=== PATIENT | male | born 1970 | race Two or more races ===

== ENCOUNTER 2016-09-17 12:28 | Emergency (ER) | payer SELFPAY ==
[2016-09-17 12:33] VITALS: BP 145/80; BMI 26.7
[2016-09-17] MEDS ORDERED: ADACEL TDaP IM ONE ×2 (13:27→13:32)
[2016-09-17] MEDS ORDERED: KEFLEX CAP 500 MG PO ONE ×2 (13:27→13:32)
[2016-09-17] MEDS ORDERED: TORADOL 60 MG VIAL IM ONE (13:27)
[2016-09-17] MEDS ORDERED: TORADOL 60 MG VIAL ONE (13:31)
--- NOTE | 2016-09-17 13:31 | DR.GENAD ---
HPI - PCP Primary Care Physician: NFD - Complaint/Symptoms Chief Complaint Doctors Comments: Patient states he fell down the stairs and cut the back of his heel yesterday but did not come to the emergency room because he was drinking. Unsure if he cut it two days ago or one day ago. States he is unsure when he got his last tetanus. He denies head trauma or LOC. He denies neck or back pain. States the pain in his heel is 5 of 10. He has been hopping but states his foot does not hurt. He denies chest pain or SOB. Chief Complaint:: FELL DOWN A SET OF STEPS YESTERDAY AND CUT THE BACK OF HIS LEFT HEEL ON SOMETHING NICHOLAS - Nurses notes reviewed Nurses Notes Review: Yes - Source History Provided: Family Member - Mode of Arrival Mode of Arrival: Ambulatory - Timing Onset of Chief Complaint: 09/16/16 Came on: Gradually - Duration Duration: Constant How lon Duration: Days - Location Location: right heel - Severity Severity: Moderate - Modifying Factors Worsens:: walking and movement Improves:: nothing PMH - PMH Past Medical History: No Past Surgical History: No - Family History History of Family Medical Conditions: No - Social History Does patient currently use any type of tobacco product: No Have you used tobacco products in the last 12 months: No Type of Tobacco Use: None Does any household member use tobacco: No Alcohol Use: DAILY Do you use any recreational Drugs:: No Lives With: Family Lives Where: Home - infectious screening In the last 2 months have you had wt loss of >10#?: NO Have you had fever, night sweats or hemotysis?: No Have you traveled outside the country in the last 6 months?: No Isolation: Standard ROS - Review of Systems Constitutional: No Symptoms Reported. negative: See HPI, Chills, Diaphoresis, Fever, Malaise, Weakness, Irritable, Fatigue, Loss of Appetite, Other Eyes: No Symptoms Reported. negative: See HPI, Eye Pain, Blurred Vision, Tearing, Discharge, Photophobia, Diplopia, Other ENTM: No Symptoms Reported Respiratoy: No Symptoms Reported. negative: See HPI, Productive Cough, Non- Productive Cough, Moist Cough, Dry Cough, Hacking Cough, Barking Cough, Brassy Cough, Orthopnea, Short of Breath, Stridor, Wheezing, Hemoptysis, Other Cardiovascular: No Symptoms Reported. negative: See HPI, Chest Pain, Edema, Palpitations, Syncope, Cyanosis, Skin Mottling, Other Gastrointestinal/Abdominal: No Symptoms Reported. negative: See HPI, Abdominal Pain, Constipation, Diarrhea, Nausea, Vomiting, Food Intolerance, Other Genitourinary: No Symptoms Reported. negative: See HPI, Discharge, Dysuria, Frequency, Hematuria, Pain, Bleeding, Other Neurological: No Symptoms Reported, Problems Walking (right heel pain) Musculoskeletal: No Symptoms Reported, Right, Foot Integumentary: No Symptoms Reported, Wound (right heel with 3x6 elliptical lesion ) Hematologic/Lymphatic: negative: No Symptoms Reported, See HPI, Anemia, Blood Clots, Easy Bleeding, Easy Bruising, Swollen Glands, Lymphadenopathy, Other Endocrine: negative: No Symptoms Reported, See HPI, Excessive Sweating, Flushing , Intolerance to Cold, Intolerance to Heat, Increased Hunger, Increased Thirst, Increased Urine, Unexplained Weight Gain, Unexplained Weight Loss, Failure to Thrive, Decreased Appetite, Other Psychiatric: No Symptoms Reported. negative: See HPI, Anxiety, Depression, Hallucinations, Excessive crying, Suicidal, Other PE - Vital Signs Vitals: Pulse Rate 77 Respiratory Rate 20 Blood Pressure 145/80 O2 Sat by Pulse Oximetry 98 - General Limitations: No Limitations General Appearance: In Distress (moderate) - Head Head Exam: Normal Inspection, Atraumatic, Normocephalic - Eyes Eye exam: Normal Appearance, PERRL, EOMI. negative: Scleral Icterus, Conjunctival Injection, Nystagmus, Miosis, Mydrasis, Periorbital Swelling, Periorbital Tenderness, Other - ENT ENT Exam: Normal Exam, Normal Oropharynx, Normal External Ear Exam, Mucous Membranes Moist, TM's Normal Bilaterally External Ear Exam: Normal External Inspection TM/Canal Exam: Bilateral Normal Nose Exam: Normal Nose Exam Mouth Exam: Normal Inspection Throat Exam: Normal Inspection - Neck Neck Exam: Normal Inspection, Full ROM, Trachea Midline - Chest Chest Inspection: Normal Inspection, Symmetric Chest Wall Rise. negative: Tenderness, Rash, Abscess, Other - Respiratory Respiratory Exam: Normal Lung Sounds Bilat Respiratory Exam: Bilateral Clear to Auscultation - Cardiovascular Cardiovascular Exam: Regular Rate, Normal Rhythm, Normal Heart Sounds - Abdominal Exam Abdominal Exam: Normal Inspection, Normal Bowel Sounds. negative: Soft, Distention, Tenderness, Guarding, Rebound, Rigidity, Dimnished Bowel Sounds, Hyperactive Bowel Sounds, Hypoactive Bowel Sounds, Organomegaly, Trauma, Incision, Ascites, Mass, Bruit, Pulsatile Mass, Hernia, Other Abdominal Tenderness: negative: RUQ, RLQ, LUQ, LLQ, Epigastrium, Suprapubic, Diffuse, Mild, Moderate, Severe, Other - Extremities Extremities Exam: Normal Inspection, Full ROM, Tenderness (right heel with laceration), Normal Capillary Refill. negative: Edema, Joint Swelling, Calf Tenderness, Other - Back Back Exam: Normal Inspection, Full ROM. negative: Tenderness, (R) CVA Tenderness, (L) CVA Tenderness, Muscle Spasm, Paraspinal Tenderness, Vertebral Tenderness, Rashes, (R) Sciatic Notch Tenderness, (L) Sciatic Notch Tendern, (R ) Straight Leg Raise, (L) Straight Leg Raise, Other - Neurologic Neurological Exam: Alert, Oriented X3, CN II-XII Intact, Reflexes Normal. negative: Normal Gait (hopping on her foot) - Psychiatric Psychiatric Exam: Normal Affect, Normal Mood. negative: Depressed, Agitated, Anxious, Flat Affect, Manic, Homicidal Ideation, Suicidal Ideation, Other - Skin Skin Exam: Warm, Dry, Intact, Normal Color - Diagnosis Discharge Problem: Laceration of right heel Qualifiers: Encounter type: initial encounter Qualified Code(s): S91.311A - Laceration without foreign body, right foot, initial encounter Contusion of foot Qualifiers: Encounter type: initial encounter - Discharge Plan Disposition: HOME, SELF-CARE Condition: Stable Prescriptions: Acetaminophen/Codeine Tab [TYLENOL w/CODEINE #3 (300 MG/30 MG) *] 1 tab PO Q4- 6H PRN #20 tab PRN Reason: Pain Cephalexin [KEFLEX CAP 500 MG *] 500 mg PO TID #30 cap Naproxen [NAPROSYN 500 MG *] 500 mg PO BID PRN #20 tab PRN Reason: Pain/Inflammation - Follow ups/Referrals Follow ups/Referrals: JACQUELYN,None [Primary Care Provider] - 3 days GRABIEL ORTEGA [STAFF PHYSICIAN] - 3 days - Instructions Instructions: Tissue Adhesive Wound Care, Laceration Care, Adult, [id number] , Contusion
== END 2016-09-17 13:52 | disposition home or self-care (01) ==
LOC: ER 12:37
DX: S91.311A Laceration without foreign body, right foot, initial encounter (principal); S90.31XA Contusion of right foot, initial encounter; W10.9XXA Fall (on) (from) unspecified stairs and steps, initial encounter; Y92.9 Unspecified place or not applicable
CPT/HCPCS: 90471; 96372; 99282; J1885